=== PATIENT | female | born 2005 | race Caucasian/White ===

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

== ENCOUNTER → 2024-09-04 | Outpatient (CLI) | payer BC ==
[~2024-09-04] MED LIST: PANT40TA29 PO
[2024-09-04 14:58] LABS: HEMATOCRIT 38.4 % (36.0-47.0); HEMOGLOBIN 13.2 g/dl (12.0-15.5); MEAN CORPUSCULAR HEMOGLOBIN 29.5 pg (27.0-33.0); MEAN CORPUSCULAR HGB CONC 34.4 g/dl (32.0-36.5); MEAN CORPUSCULAR VOLUME 85.7 fl (80.0-96.0); PLATELET COUNT, AUTOMATED 246 10^3/uL (150-450); RED BLOOD COUNT 4.48 10^6/uL (4.00-5.40); WHITE BLOOD COUNT 7.6 10^3/uL (4.0-10.0)
[2024-09-04 15:15] LABS: TOTAL 25(OH) VITAMIN D 14.5 NG/ML (20.0-100.0)
[2024-09-04 15:49] LABS: HIV 1&2 SCREEN NEGATIVE (NEGATIVE)
[2024-09-04 15:57] LABS: HEPATITIS C VIRUS ABY INDEX < 0.02 INDEX (<0.8)
[2024-09-04 16:18] LABS: GC DNA AMPLIFICATION NEGATIVE (NEGATIVE)
== END ==
LOC: M PLALAB 11:13
PROVIDERS: ATTEND Advanced Practice Midwife
DX: Z34.81 Encounter for supervision of other normal pregnancy, first trimester (principal)

== ENCOUNTER → 2024-09-15 | Outpatient (CLI) | payer BC | LOC: M PLALAB 15:30 | PROVIDERS: ATTEND Advanced Practice Midwife | DX: Z34.82 Encounter for supervision of other normal pregnancy, second trimester (principal) ==

== ENCOUNTER → 2024-11-12 | Outpatient (CLI) | payer BC | LOC: M WHC 13:48 | PROVIDERS: ATTEND Advanced Practice Midwife | DX: Z34.82 Encounter for supervision of other normal pregnancy, second trimester (principal) ==

== ENCOUNTER → 2024-11-30 | Outpatient (CLI) | payer BC | LOC: M WHC 08:00 | PROVIDERS: ATTEND Nurse Practitioner Family | DX: Z34.80 Encounter for supervision of other normal pregnancy, unspecified trimester (principal); Z3A.24 24 weeks gestation of pregnancy ==

== ENCOUNTER → 2024-12-18 | Outpatient (CLI) | payer BC ==
[2024-12-18 15:26] LABS: HEMATOCRIT 36.9 % (36.0-47.0); HEMOGLOBIN 12.5 g/dl (12.0-15.5); MEAN CORPUSCULAR HEMOGLOBIN 29.2 pg (27.0-33.0); MEAN CORPUSCULAR HGB CONC 33.9 g/dl (32.0-36.5); MEAN CORPUSCULAR VOLUME 86.2 fl (80.0-96.0); PLATELET COUNT, AUTOMATED 209 10^3/uL (150-450); RED BLOOD COUNT 4.28 10^6/uL (4.00-5.40); WHITE BLOOD COUNT 7.8 10^3/uL (4.0-10.0)
[2024-12-18 15:53] LABS: GLUCOSE CHALLENGE TEST 1 HOUR 109 MG/DL (LESS THAN 140)
[2024-12-18 15:56] LABS: TOTAL 25(OH) VITAMIN D 10.6 NG/ML (20.0-100.0)
[2024-12-18 16:20] LABS: HIV 1&2 SCREEN NEGATIVE (NEGATIVE)
[2024-12-18 16:28] LABS: HEPATITIS C VIRUS ABY INDEX 0.12 INDEX (<0.8)
[2024-12-18 17:43] LABS: GC DNA AMPLIFICATION NEGATIVE (NEGATIVE)
== END ==
LOC: M PLALAB 12:06
PROVIDERS: ATTEND Nurse Practitioner Family
DX: Z34.80 Encounter for supervision of other normal pregnancy, unspecified trimester (principal); E55.9 Vitamin D deficiency, unspecified

== ENCOUNTER 2025-02-01 16:54 | Outpatient (CLI) | payer BC ==
[2025-02-01 17:11] VITALS: BP 132/75
[2025-02-01 17:27] VITALS: BP 127/79
[2025-02-01 17:57] VITALS: BP 124/79
[2025-02-01 18:09] LABS: BASO % 0.4 % (0.0-1.0); EOS # 0.2 10^3/uL (0.0-0.5); EOS % 2.3 % (0.0-3.0); HEMATOCRIT 35.4 % (36.0-47.0); HEMOGLOBIN 12.3 g/dl (12.0-15.5); LYMPH # 1.5 10^3/uL (1.5-5.0); LYMPH % 18.1 % (24.0-44.0); MEAN CORPUSCULAR HEMOGLOBIN 28.9 pg (27.0-33.0); MEAN CORPUSCULAR HGB CONC 34.7 g/dl (32.0-36.5); MEAN CORPUSCULAR VOLUME 83.3 fl (80.0-96.0); MONO # 0.7 10^3/uL (0.0-0.8); MONO % 8.5 % (2.0-8.0); NEUTROPHILS # 5.8 10^3/uL (1.5-8.5); NEUTROPHILS % 70.2 % (36.0-66.0); PLATELET COUNT, AUTOMATED 181 10^3/uL (150-450); RED BLOOD COUNT 4.25 10^6/uL (4.00-5.40); WHITE BLOOD COUNT 8.3 10^3/uL (4.0-10.0)
[2025-02-01 18:13] VITALS: BP 129/62
[2025-02-01 18:27] VITALS: BP 124/56
[2025-02-01 18:36] LABS: URIC ACID 3.8 MG/DL (3.1-7.8)
[2025-02-01 18:39] LABS: ALT/SGPT < 9 U/L (7.0-40); AST/SGOT 9 U/L (<34); BILIRUBIN,TOTAL 0.2 MG/DL (0.3-1.2); GLOMERULAR FILTRATION RATE > 60.0 (>60); LDH LACTATE DEHYDROGENASE 185 U/L (120-246)
[2025-02-01 18:51] LABS: CREATININE,RANDOM URINE 103.7 MG/DL
[2025-02-01 19:26] VITALS: BP 133/77; TEMP 98.1
== END 2025-02-01 19:45 | disposition home or self-care (01) ==
LOC: M LDO 16:54
PROVIDERS: ATTEND Advanced Practice Midwife
DX: O13.3 Gestational [pregnancy-induced] hypertension without significant proteinuria, third trimester (principal); O99.213 Obesity complicating pregnancy, third trimester; O99.283 Endocrine, nutritional and metabolic diseases complicating pregnancy, third trimester; O26.713 Subluxation of symphysis (pubis) in pregnancy, third trimester; O26.893 Other specified pregnancy related conditions, third trimester; M25.551 Pain in right hip; M25.552 Pain in left hip; E55.9 Vitamin D deficiency, unspecified; E66.9 Obesity, unspecified; Z3A.33 33 weeks gestation of pregnancy
CPT/HCPCS: 36415; 59025; 76815; 82247; 82570; 83615; 84156; 84450; 84460; 84550; 85025; G0463

== ENCOUNTER 2025-02-07 16:28 | Outpatient (CLI) | payer BC ==
[~2025-02-07] VITALS: Ht 165.1 cm; Wt 108.3 kg
[2025-02-07] MEDS ORDERED: ACET-907 PO (16:39)
[2025-02-07] MEDS ORDERED: HOME MED LIST COMPLETE! XX SCH (16:40)
[2025-02-07 16:47] VITALS: BP 111/78; O2SAT 96
[2025-02-07 17:05] VITALS: BP 133/77
[2025-02-07 17:17] LABS: HEMATOCRIT 34.4 % (36.0-47.0); HEMOGLOBIN 11.9 g/dl (12.0-15.5); MEAN CORPUSCULAR HEMOGLOBIN 28.6 pg (27.0-33.0); MEAN CORPUSCULAR HGB CONC 34.6 g/dl (32.0-36.5); MEAN CORPUSCULAR VOLUME 82.7 fl (80.0-96.0); PLATELET COUNT, AUTOMATED 169 10^3/uL (150-450); RED BLOOD COUNT 4.16 10^6/uL (4.00-5.40); WHITE BLOOD COUNT 6.4 10^3/uL (4.0-10.0)
[2025-02-07 17:20] VITALS: BP 121/83
[2025-02-07 17:25] LABS: TOTAL PROTEIN,RANDOM URINE 6.9 MG/DL (0.0-14.0)
[2025-02-07 17:30] LABS: CREATININE,RANDOM URINE 52.7 MG/DL
[2025-02-07 17:41] LABS: URIC ACID 3.7 MG/DL (3.1-7.8)
[2025-02-07 17:43] LABS: ALT/SGPT 9 U/L (7.0-40); AST/SGOT 10 U/L (<34); BILIRUBIN,TOTAL 0.2 MG/DL (0.3-1.2); CREATININE FOR GFR 0.39 MG/DL (0.55-1.30); GLOMERULAR FILTRATION RATE > 60.0 (>60); LDH LACTATE DEHYDROGENASE 172 U/L (120-246)
== END 2025-02-07 18:20 | disposition home or self-care (01) ==
LOC: M LDO 16:28
PROVIDERS: ATTEND Obstetrics & Gynecology
DX: O13.3 Gestational [pregnancy-induced] hypertension without significant proteinuria, third trimester (principal); O99.353 Diseases of the nervous system complicating pregnancy, third trimester; G43.009 Migraine without aura, not intractable, without status migrainosus; Z3A.34 34 weeks gestation of pregnancy
CPT/HCPCS: 59025; 82247; 82570; 83615; 84156; 84450; 84460; 84550; 85027; G0463

== ENCOUNTER → 2025-02-11 | Outpatient (CLI) | payer BC ==
[~2025-02-11] MED LIST changes: +ACET-907 PO
== END ==
LOC: M WHC 07:44
PROVIDERS: ATTEND Advanced Practice Midwife
DX: O13.3 Gestational [pregnancy-induced] hypertension without significant proteinuria, third trimester (principal)

== ENCOUNTER → 2025-02-16 | Outpatient (REF) | payer BC | LOC: M PLALAB 11:07 | PROVIDERS: ATTEND Obstetrics & Gynecology | DX: O13.3 Gestational [pregnancy-induced] hypertension without significant proteinuria, third trimester (principal); O99.283 Endocrine, nutritional and metabolic diseases complicating pregnancy, third trimester; E55.9 Vitamin D deficiency, unspecified; O26.893 Other specified pregnancy related conditions, third trimester; M25.551 Pain in right hip; M25.552 Pain in left hip; Z3A.35 35 weeks gestation of pregnancy ==

== ENCOUNTER 2025-02-21 17:10 | Outpatient (CLI) | payer BC ==
[~2025-02-21] VITALS: Ht 165.1 cm; Wt 110.9 kg
[2025-02-21 17:27] VITALS: BP 135/69
[2025-02-21 17:36] VITALS: O2SAT 98
[2025-02-21] MEDS ORDERED: ACET-907 PO (17:40)
[2025-02-21 17:44] VITALS: BP 132/86
[2025-02-21] MEDS ORDERED: HOME MED LIST COMPLETE! XX SCH (17:45)
[2025-02-21 17:58] VITALS: BP 128/85
[2025-02-21 18:10] LABS: HEMATOCRIT 32.6 % (36.0-47.0); HEMOGLOBIN 11.2 g/dl (12.0-15.5); MEAN CORPUSCULAR HEMOGLOBIN 28.1 pg (27.0-33.0); MEAN CORPUSCULAR HGB CONC 34.4 g/dl (32.0-36.5); MEAN CORPUSCULAR VOLUME 81.9 fl (80.0-96.0); PLATELET COUNT, AUTOMATED 174 10^3/uL (150-450); RED BLOOD COUNT 3.98 10^6/uL (4.00-5.40); WHITE BLOOD COUNT 6.8 10^3/uL (4.0-10.0)
[2025-02-21 18:13] VITALS: BP 123/81
[2025-02-21 18:19] LABS: CREATININE,RANDOM URINE 26.4 MG/DL
[2025-02-21 18:25] LABS: TOTAL PROTEIN,RANDOM URINE < 6.0 MG/DL (0.0-14.0)
[2025-02-21 18:27] VITALS: BP 146/69
[2025-02-21 18:29] LABS: URIC ACID 3.7 MG/DL (3.1-7.8)
[2025-02-21 18:31] LABS: LDH LACTATE DEHYDROGENASE 156 U/L (120-246)
[2025-02-21 18:32] LABS: ALT/SGPT 10 U/L (7.0-40); AST/SGOT 10 U/L (<34); BILIRUBIN,TOTAL 0.2 MG/DL (0.3-1.2); CREATININE FOR GFR 0.39 MG/DL (0.55-1.30); GLOMERULAR FILTRATION RATE > 90.0 (>60)
== END 2025-02-21 19:32 | disposition home or self-care (01) ==
LOC: M LDO 17:10
PROVIDERS: ATTEND Specialist
DX: O13.3 Gestational [pregnancy-induced] hypertension without significant proteinuria, third trimester (principal); O26.713 Subluxation of symphysis (pubis) in pregnancy, third trimester; O99.283 Endocrine, nutritional and metabolic diseases complicating pregnancy, third trimester; E55.9 Vitamin D deficiency, unspecified; Z3A.36 36 weeks gestation of pregnancy
CPT/HCPCS: 59025; 82247; 82570; 83615; 84156; 84450; 84460; 84550; 85027; G0463